=== PATIENT | male | born 1970 | race Caucasian/White ===

== ENCOUNTER 2023-07-16 20:28 | Emergency (ER) | payer OTHER, SELFPAY ==
[2023-07-16 20:29] VITALS: BP 143/95; PULSE 88; RESP 16; TEMP 36; O2SAT 98; BMI 27.8
== END 2023-07-16 21:22 | disposition left against medical advice (07) ==
LOC: ED 21:27
PROVIDERS: PCP Student in an Organized Health Care Education/Training Program
DX: M54.9 Dorsalgia, unspecified (principal)

== ENCOUNTER 2023-07-19 20:09 | Emergency (ER) | payer OTHER, SELFPAY ==
[2023-07-19 20:10] VITALS: BP 144/80; PULSE 90; RESP 17; TEMP 36; O2SAT 100; BMI 28.2
--- NOTE | 2023-07-19 20:48 | EDS_ITS ---
HPI History of Present Illness Chief Complaint: Back Informant: patient Onset/Context/Timing Onset: Weeks (2) Context: Sudden Onset Timing: Continuous Quality: - (Stabbing, cramping) Location: Lumbar and Buttock Worsened by: improves with Nothing Relieved by: Nothing Associated Symptoms Associated Symptoms: Negative for Numbness, Tingling, Radiation to Right Leg, Radiation to Left Leg, Fever, Abdominal Pain, Dysuria, Unable to Ambulate, Unable to Transfer, Urinary Retention, Urinary Incontinence, Constipation or Fecal Incontinence Narrative Narrative: Patient presents with back pain that has been getting progressively worse over the past 2 weeks. Patient states it is stabbing and cramping. Patient states he originally injured his back getting into a car. Patient states that his pain is mainly over the left lower lumbar area. Patient denies any radiation of the pain down his leg. Patient states it goes into his left buttock area. Patient states nothing makes his pain better and nothing makes it worse. Patient admits to some constipation but denies any bowel or bladder changes. Patient denies any saddle anesthesia. PFSH PFSH Medical History no medical history no medical history Home Medications ?Medication ?Instructions ?Recorded ?Last Taken ?Type hydrocodone-acetaminophen 5-325mg 1 tab PO Q6H PRN PRN Pain 3 days 07/19/23 Unknown Rx 5mg-325mg #10 TABLETS Allergy/AdvReac Type Severity Reaction Status Date / Time No Known Allergies Allergy Verified 07/19/23 20:11 Surgical History (Updated 07/19/23 @ 22:[address] Luke Otoole, ) Hx of knee surgery Hx of foot surgery Social History (Updated 07/19/23 @ 22:[address] Luke Otoole DO) Smokeless tobacco user: snuff ROS ROS ED Constitutional Constitutional ED: Denies chills or fever(s) Eyes Eyes: Denies blurry vision or change in vision ENT ENT ED: Denies rhinorrhea or sore throat Cardiovascular Cardiovascular: Denies chest pain or palpitations Respiratory/Chest Respiratory/Chest: Denies cough or dyspnea Gastrointestinal Gastrointestinal: Denies nausea or vomiting Genitourinary Genitourinary ED: Denies dysuria or hematuria Musculoskeletal Musculoskeletal: Reports back pain; Denies neck pain Integumentary Denies abscess or rash Neurologic Neurologic: Denies headache(s) or weakness Allergic/Immunologic Allergic/Immunologic ED: Denies mouth swelling or urticaria EXAM Physical Exam Const Vital Signs: 07/19/23 20:10 Temperature 96.8 F L Temperature Source Temporal Pulse Rate 90 Respiratory Rate 17 Blood Pressure 144/80 H Blood Pressure Mean 101 Pulse Ox 100 Oxygen Delivery Method Room Air Positive well nourished and well developed General Appearance ED: well developed and NAD HEENT Reports moist mucous membranes Neck supple and no JVD Back/Spine Back/Spine Narrative: There is tenderness and spasm of the left lumbar paraspinal muscles. There are some mild midline tenderness. There is no bony crepitance or step-off. Range of motion was limited in all motions of the lumbar spine secondary to pain. Strength is 5/5 bilaterally in the lower extremities. Straight leg raises were negative bilaterally. Sensation was intact to light touch bilaterally in the lower extremities. Deep tendon reflexes were 2/4 bilaterally in the lower extremities. Lumbar Spine / Lower Back: ROM limited and straight leg raise negative bilaterally Extremity normal to inspection General Extremety ED: Negative for edema or tenderness General Extremity: Negative for edema Neuro oriented x3 and no sensory deficits noted Sensorium / Orientation: alert Motor Exam: strength 5/5 throughout Deep Tendon Reflexes: Rt Patellar (L4): 2+, Lt Patellar (L4): 2+, Rt Ankle (S1): 2+ and Lt Ankle (S1): 2+ Deep Tendon Reflexes Back: Rt Patellar (L4): 2+, Lt Patellar (L4): 2+, Rt Ankle (S1): 2+ and Lt Ankle (S1): 2+ Skin no rashes or lesions noted MDM MDM MDM Narrative Medical decision making narrative: Differential diagnosis includes lumbosacral strain, disc herniation, lumbar radiculopathy, sciatica, and spondylolisthesis. X-rays of the lumbar spine were ordered to assess for spondylolisthesis. However, patient told radiology techs that he had x-rays done recently at a different facility which were normal. Patient did not want further x-rays. Patient was given injection of morphine here. Patient was given a prescription for a short course of [place]. Patient was instructed to follow-up with his MRI as scheduled. Patient was instructed to follow-up with his primary care physician in 5 to 7 days. Patient understood and was agreeable with plan. All questions were answered. Discharge Plan Triage Chief Complaint: Back ED Provider: Luke Otoole Dx/Rx/DC Orders Clinical Impression: Acute low back pain, Acute lumbosacral myofascial strain Instructions: ED Back Pain (Acute or Chronic) Prescriptions: New hydrocodone-acetaminophen 5-325 mg tablet 1 tab PO Q6H PRN PRN (Reason: Pain) 3 Days Qty: 10 0RF Primary Care Provider: Josey Valladares Referrals: Josey Valladares MD [Primary Care Provider] - 3-5 Days Print Language: [place] Disposition Disposition: Home, Self Care
[2023-07-19] MEDS: Morphine 4 MG/ML Syringe IM (21:36)
[2023-07-19 22:37] VITALS: BP 129/87; PULSE 81; RESP 16; TEMP 36.6; O2SAT 99
== END 2023-07-19 22:38 | disposition home or self-care (01) ==
PROVIDERS: Emergency Provider Emergency Medicine; PCP Student in an Organized Health Care Education/Training Program; Visit Provider Emergency Medicine
DX: S39.012A Strain of muscle, fascia and tendon of lower back, initial encounter (principal); X58.XXXA Exposure to other specified factors, initial encounter; Y92.810 Car as the place of occurrence of the external cause
CPT/HCPCS: 96372; 99282